=== PATIENT | female | born 1960 | race Caucasian/White ===

== ENCOUNTER → 2019-03-09 14:13 | Outpatient (CLI) | payer BC, SELFPAY ==
[2019-03-09 14:10] VITALS: BMI 32.5
--- NOTE | 2019-03-09 14:16 | RAD_ITS ---
STUDY: X-RAY - RIGHT KNEE REASON FOR EXAM: Female, 58 years old. Pain. No history of injury. TECHNIQUE: 4 view(s) of the knee. COMPARISON: None. FINDINGS: There is demineralization of the visualized distal femur. There is demineralization of the tibia and fibula. There is arthrosis of the proximal tibiofibular articulation. There is no demonstrated fracture. There is mild degenerative arthrosis of the medial femorotibial compartment. There is mild degenerative arthrosis of the lateral femorotibial compartment. There is mild degenerative arthrosis of the patellofemoral articulation. There is mild joint effusion. The soft tissue structures are unremarkable. RAD/Knee 4 or More Views IMPRESSION: Diffuse osteopenia along with mild degenerative disease. Joint effusion. Electronically Signed: Iesha Rothman MD at 1:27 EST , Service support ,
== END ==
PROVIDERS: Referring Provider Orthopaedic Surgery; Visit Provider Orthopaedic Surgery
DX: M25.561 Pain in right knee (principal)
CPT/HCPCS: 73564

== ENCOUNTER → 2019-04-05 17:32 | Outpatient (CLI) | payer BC, SELFPAY ==
[2019-03-28 14:20] VITALS: BMI 32.5
--- NOTE | 2019-04-05 17:38 | MRI_ITS ---
STUDY: MRI RIGHT KNEE REASON FOR EXAM: Female, 58 years old. Right knee pain. TECHNIQUE: Standardized fat and water weighted pulse sequences were obtained in all 3 orthogonal planes. COMPARISON: X-ray March 09, 2019. FINDINGS: The patient is status post partial medial meniscectomy with surgical recontouring and loss of substance. There is diffuse, full thickness articular cartilage loss of the medial femorotibial compartment. There is mild osteoarthritic spur formation of the medial knee compartment. Normal medial collateral ligamentous complex (MCL). Normal distal semimembranosus, gracilis and semitendinosus tendons. There is intra-substance myxoid degeneration of the lateral meniscus, but without a demonstrated meniscal tear. There is diffuse, greater than 50% thickness articular cartilage loss of the lateral femorotibial compartment. There is mild osteoarthritic spur formation of the lateral knee compartment. Normal proximal tibiofibular articulation. Normal lateral collateral (fibular) ligament. Normal popliteus tendon. Normal biceps femoris tendon. There is edema with swelling and loss of definition of the of the ACL fascicles, producing a celery stick appearance, with preservation of the continuity of fibers, consistent with mucoid cystic degeneration. Normal posterior cruciate ligament (PCL). There is arthrosis of the patellofemoral articulation. There is diffuse, less than 50% thickness articular cartilage loss of the patellofemoral compartment. Normal medial and lateral patellar retinaculum. Normal quadriceps tendon. Normal patellar tendon. Normal Hoffa''s fat pad. There is a moderate volume joint effusion. The soft tissues are unremarkable. The otherwise visualized osseous structures are unremarkable. MRI/Lower Ext Joint Only (Routine) IMPRESSION: Tricompartmental degenerative change. 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 Partial medial meniscectomy. Joint effusion. Electronically Signed: Burt Whalen MD at 18:57 EST , Service support ,
== END ==
PROVIDERS: Referring Provider Orthopaedic Surgery; Visit Provider Orthopaedic Surgery
DX: M25.561 Pain in right knee (principal); M17.11 Unilateral primary osteoarthritis, right knee
CPT/HCPCS: 73721

== ENCOUNTER 2019-05-04 16:30 | Outpatient (RCR) | payer BC, SELFPAY ==
[2019-04-08 07:53] VITALS: BMI 32.5
--- NOTE | 2019-04-15 09:21 | HP.PTEVAL ---
Patient's Visit Information NOLVIA VEGAS is a 59 year old F referred to Physical Therapy by Cong Junior DO with a diagnosis of Right Knee OA. Date of Evaluation: 04/15/19 Physical Therapist: Mary Chávez DPT - Visit Plan Frequency: 2-3x /Week Duration: 4 Weeks Plan: Focus on LE and core strength/stabilization - Subjective Findings: Patient has had 2 right knee surgeries and are now telling her that she will probably need a knee replacement. They gave her a gel injection and she feels that it helped a little bit. Is going back to [facility] for a second opinion in April. Her arch is falling and her ACL is weak. Normally plans tennis 2-3x a week but last time she was playing was January. She travels for work. 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 When she stands up after sitting it pains in the back. Locked up over Thanksgiving and she stretched and then biked and it was better. Is wearing an orthotic and wears KT tape when she plays. Worst: 9/10 Best: 0/10. Normally is a 3-4/10. Describes as sharp/shooting on the medial side of the knee. No N/T. Radiates to the calf and has had some tightness in the groin but doesnt know if its radiating pain. Maintain for 2019 and then possibly have surgery a year from now. PMHx: 2 knee surgeries Meds: Meloxicam. Has had MRI and x-rays. Sleep: not disturbed. - Objective Posture: FH, RS, increased kyphosis. Gait: slightly antalgic- decreased stance on right LE with poor heel/toe pattern due to ROM deficit. Stairs: asc/desc 8'' recip- asc-hops with other foot for propulsion. Desc uncontrolled. HR/TR: able. SLS: 10 sec then LOB with increased muscle activation and sway. Palpatoin: tender along medial joint line. ROM: 15-125 pain at end range extension. Strength: Ankle: 5/5, Knee; 4+/5 in available range, Hip: 4/5 throughout Core: fair. Flex: HS: severe, Gastroc: severe - Goals Goal 1:: Patient will be I with HEP and progression Goal Time Frame: 4-6 Weeks Goal 2:: Patient will ambulate >300 feet with a normalized gait pattern Goal Time Frame: 4-6 Weeks Goal 3:: Patient will maintain proper posture t/o tx session to demo increased core s/s. Goal Time Frame: 4-6 Weeks Goal 4:: Patient will demo asc/desc 8 stairs recip no HR and good pattern Goal Time Frame: 4-6 Weeks - Rehabilitation Potential Physical Therapy Diagnosis: Patient presents with hypomobility- she has decreased painfree ROM, strength and muscular endurance leading to increased pain with ADL's. Rehabilitation Potential: Fair - Anticipated Interventions Patient/Client Instruction: Educate patient on: Benefits of Fitness Program Therapeutic Exercise to Include: Strength training, Endurance training, Balance training, Agility training, Body mechanics, Postural training, Flexibilty training, Gait and locomotor training, Passive ROM, Active ROM, Dynamic Lumbar Stabilization For the Purpose of:: To improve muscle performance and motor function TENS: Yes Cryotherapy (ice pack, ice massage): Yes Thermo therapy (hot pack): Yes Ultrasound (thermal/non thermal): Yes Thank you for the opportunity to evaluate your patient. For Medicare and Medicare HMO plans, please review the plan of care and approve it. It will need to be FAXED BACK to us at [phone] for Medicare purposes. For Medicare only, by signing this I certify the plan of care. Please let me know if there are questions or concerns regarding this plan of care. Physician Signature: Date:
--- NOTE | 2019-09-06 11:34 | HP.PT.NRP ---
NOLVIA VEGAS was seen in my office for initial evaluation on 04/15/19. The following Plan of Care was established for this patient: Initial Frequency: 2-3x /Week Initial Duration: 4 Weeks Patient/Client Instruction: Educate patient on: Benefits of Fitness Program Therapeutic Exercise to Include: Strength training, Endurance training, Balance training, Agility training, Body mechanics, Postural training, Flexibilty training, Gait and locomotor training, Passive ROM, Active ROM, Dynamic Lumbar Stabilization For the Purpose of:: To improve muscle performance and motor function TENS: Yes Cryotherapy (ice pack, ice massage): Yes Thermo therapy (hot pack): Yes Ultrasound (thermal/non thermal): Yes This patient was last seen in our office . Pertinent comments regarding their Physical therapy will appear below: Patient has not attended physical therapy in over 8 weeks- appropriate for d/c and return to MD as appropriate. At this point I will be discontinuing this patient from physical therapy. I would be happy to see this patient again in the future if found appropriate by the physician. Thank you! Mary Chávez DPT
== END 2019-05-04 19:00 | disposition home or self-care (01) ==
LOC: PT 16:30
PROVIDERS: Referring Provider Orthopaedic Surgery; Visit Provider Orthopaedic Surgery
DX: M17.11 Unilateral primary osteoarthritis, right knee (principal)
CPT/HCPCS: 97110; 97113; 97161